=== PATIENT | male | born 1985 | race Caucasian/White ===

== ENCOUNTER 2017-07-01 17:00 | Emergency (ER) | payer MEDICAID, OTHER ==
[2017-07-01 17:20] VITALS: TEMP 100.4; O2SAT 98
[2017-07-01] MEDS ORDERED: Amoxicillin-Clav 875-125 mg Tab PO STA (18:17)
[2017-07-01] MEDS ORDERED: Albuterol 0.083% Inhal Sol (2.5 mg/3 mL) UD INH STA (18:17)
[2017-07-01] MEDS ORDERED: Amoxicillin-Clav 875-125 mg Tab PO ONE (18:28)
[2017-07-01] MEDS ORDERED: Albuterol 0.083% Inhal Sol (2.5 mg/3 mL) UD ONE (18:28)
--- NOTE | 2017-07-01 19:08 | C.PDOC ---
History Of Present Illness 31 yo male w/PMHx of asthma come in for evaluation of cold sx for past 2 days associated with nasal congestion, runny nose, dry cough associated with mild chest tightness. Otherwise, pt denies high fever, headache, dizziness, drooling , dysphagia, dyspnea, wheezing, abd. pain, N/V/D, Ambulate to Ed for evaluation , not in nay apparent distress. Time Seen by Provider: 07/01/17 18:00 Chief Complaint (Nursing): Flu-like Symptoms Past Medical History Reviewed: Historical Data, Nursing Documentation, Vital Signs Vital Signs: Last Vital Signs Temp 100.4 F H 07/01/17 17:20 Pulse 88 07/01/17 17:20 Resp 20 07/01/17 17:20 BP 139/80 07/01/17 17:20 Pulse Ox 98 07/01/17 17:20 - [facility] Procedures APPLICATION OF SPLINT (05/31/13) TETANUS TOXOID ADMINIST (05/31/13) Family History: States: Unknown Family Hx - Social History Hx Tobacco Use: No Hx Alcohol Use: Yes Hx Substance Use: No - Immunization History Hx Tetanus Toxoid Vaccination: No Hx Influenza Vaccination: No Hx Pneumococcal Vaccination: No Physical Exam - Physical Exam Appears: Well, Non-toxic, No Acute Distress Skin: Normal Color, Warm, Dry, No Rash Head: Normacephalic Eye(s): bilateral: PERRL Ear(s): Bilateral: Normal Nose: No Flaring, Discharge (clear rhinorrhea B/L) Oral Mucosa: Moist Throat: Erythema (mod B/l with edema, tonsilar enlargement with Right exudate.) , Other (uvul amidline, no edema.) Neck: Trachea Midline, Supple Lymphatic: No Adenopathy Cardiovascular: Rhythm Regular Respiratory: No Decreased Breath Sounds, No Accessory Muscle Use, No Rales, No Rhonchi, No Stridor, Wheezing (scattered Right base exp wheezes) Gastrointestinal/Abdominal: Soft, No Tenderness Extremity: Normal ROM, No Deformity, No Swelling Neurological/Psych: Oriented x3, Normal Speech ED Course And Treatment ECG: Interpreted By Me, Viewed By Me (and ) ECG Rhythm: Sinus Rhythm Interpretation Of ECG: SR@84/min,LAD, no acute T wave or ST-T changes. O2 Sat by Pulse Oximetry: 98 Pulse Ox Interpretation: Normal Progress Note: On re-evaluation, pt is afebrile, hemodynamicaly stable, not in any apparent distress. Tolerate Po well in Ed. PulsEOx 98% rA. ENT: exam c/w acute pharyngitis. uvula midline, no edema. Neck: Supple, (-) meningeal sign. Lungs: CTA B/L, Bs equal B/L. Abd:benidgn, (-) guarding, (-) rebound. Neuorlogicaly intact. Pt has clinical findings c/w acute pharyngitis. Pt advised. ref. to f/u with PMD in 2-3 days for re-eval. return to ED if any worsening or new changes. Disposition Counseled Patient/Family Regarding: Diagnosis, Need For Followup, Rx Given - Disposition Referrals: Jeanette Jensen APN [Advanced Practice Nurse] - Disposition: HOME/ ROUTINE Disposition Time: 18:36 Condition: STABLE Additional Instructions: Encourage fluids Take medication as prescribed Follow up with PMD in 2-3 days for re-evaluation. return to Ed if any worsening or new changes. Prescriptions: Albuterol HFA [Ventolin HFA 90 mcg/actuation (8 g)] 1 puff IH Q6 #1 inhaler Amoxicillin/Clavulanate [Augmentin 875 MG-125 MG] 1 tab PO BID #14 tab Prednisone [Deltasone] 40 mg PO DAILY #6 tablet Instructions: Pharyngitis (ED) - Clinical Impression Clinical Impression: Pharyngitis
[2017-07-01 19:32] VITALS: BP 124/74; PULSE 74; RESP 16
--- NOTE | 2017-07-02 13:52 | CARD ---
APPROVED REPORT EKG Measurement Heart [id number] <Conclusion> Normal sinus rhythm Moderate voltage criteria for LVH, may be normal variant Borderline ECG
== END 2017-07-01 19:31 | disposition home or self-care (01) ==
LOC: C.ER 17:00
DX: J02.9 Acute pharyngitis, unspecified (principal)